=== PATIENT | female | born 1980 | race American Indian/Alaskan Native ===

== ENCOUNTER 2017-03-03 17:48 | Emergency (ER) | payer OTHER ==
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
[2017-03-03] MEDS ORDERED: cefTRIAXone (Rocephin) 250 mg Inj IM STA (19:33)
[2017-03-03 19:48] VITALS: BP 111/83; PULSE 90; RESP 20; TEMP 97.9
[2017-03-03 19:57] VITALS: O2SAT 99
== END 2017-03-03 20:00 | disposition home or self-care (01) ==
LOC: C.ER 17:48
DX: Z04.8 Encounter for examination and observation for other specified reasons (principal); Y04.0XXA Assault by unarmed brawl or fight, initial encounter; Y93.89 Activity, other specified; Y92.89 Other specified places as the place of occurrence of the external cause
CPT/HCPCS: 96372; 99285; J0696